=== PATIENT | female | born 1995 | race Caucasian/White ===

== ENCOUNTER 2019-05-21 07:30 | Emergency (ER) | payer OTHER ==
[2019-05-21] MEDS ORDERED: NA CHLORIDE 0.9% 1,000 ML ONE (08:18)
[2019-05-21 08:24] LABS: Protime INR 1.27
[2019-05-21 08:32] LABS: Absolute Lymphocytes (CBC) 1.2 K/uL (0.7-4.9); Basophils % 0.4 % (0-1.3); Hematocrit 36.5 % (36.0-45.0); Lymphocytes % 34.1 % (15.3-44.8); RBC Red Blood Cell Count 4.67 M/uL (3.86-4.86)
--- NOTE | 2019-05-21 08:45 | RAD REPORT ---
EXAM DESCRIPTION: Miesha Single View05/21/2019 8:23 am CLINICAL HISTORY: Chest pain COMPARISON: none FINDINGS: The lungs appear clear of acute infiltrate. The heart is mildly enlarged Postsurgical changes involve the chest and spine IMPRESSION: No acute abnormalities displayed
[2019-05-21 08:55] LABS: ALT/SGPT 15 U/L (12-78); AST/SGOT 23 U/L (15-37); Albumin 3.3 g/dL (3.4-5.0); Alkaline Phosphatase 86 U/L (45-117); BUN Blood Urea Nitrogen 10 mg/dL (7-18); Bicarbonate 23 mmol/L (21-32); Bilirubin Direct 0.2 mg/dL (0-0.2); Bilirubin Total 0.7 mg/dL (0.2-1.0); Glucose Level 95 mg/dL (74-106); Lipase 67 U/L (73-393); Magnesium 2.4 mg/dL (1.8-2.4); NT PRO-BNP 279 pg/mL (<125); Potassium 3.5 mmol/L (3.5-5.1); Protein, Total 8.1 g/dL (6.4-8.2); Sodium Level 139 mmol/L (136-145); Troponin (Emerg Dept Use Only) < 0.02 ng/mL (0.0-0.045)
--- NOTE | 2019-05-21 09:29 | ER ---
Nurse's Notes [facility] Name: Genoveva Harrison Age: 23 yrs Sex: Female : 1995 Arrival Date: 05/21/2019 Time: 07:32 Bed 4 Private MD: Diagnosis: Chest pain, unspecified-truncus arteriosis hx;Dyspnea;Unspecified combined systolic (congestive) and diastolic (congestive) heart failure;Cardiomegaly Presentation: 05/20 07:44 Chief complaint: Patient states: hx of artificial valve and is due for a replacement , iw has hx of PVC and PAC, took magnesium last night because she was having chest pain and sharp stabbing pains when she took a deep breath, pain was worse this morning. Coronavirus screen: The patient has NOT traveled to a country currently being monitored by the [facility] within the last 14 days. Proceed with normal triage procedures. The patient has NOT had contact with any known and/or suspected case of coronavirus. Proceed with normal triage procedures. Ebola Screen: Patient negative for fever greater than or equal to 101.5 degrees Fahrenheit, and additional compatible Ebola Virus Disease symptoms Patient denies exposure to infectious person. Patient denies travel to an Ebola-affected area in the 21 days before illness onset. No symptoms or risks identified at this time. Initial Sepsis Screen: Does the patient meet any 2 criteria? No. Patient's initial sepsis screen is negative. Does the patient have a suspected source of infection? No. Patient's initial sepsis screen is negative. Risk Assessment: Do you want to hurt yourself or someone else? Patient reports no desire to harm self or others. 07:44 Method Of Arrival: Ambulatory iw 07:44 Acuity: FERNANDA 2 iw 08:22 Onset of symptoms was May 21, 2019. 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 - Social history:: Smoking status: Patient denies any tobacco usage or history of. - Family history:: not pertinent. Screenin:22 Abuse screen: Denies threats or abuse. Nutritional screening: No deficits noted. tw2 Tuberculosis screening: No symptoms or risk factors identified. Fall Risk None identified. Assessment: 08:05 General: Appears in no apparent distress. slender, well groomed, Behavior is calm, tw2 cooperative, appropriate for age. Pain: Complains of pain in chest Pain does not radiate. Pain began suddenly, Aggravated by deep breathing. Neuro: Level of Consciousness is awake, alert, obeys commands, Oriented to person, place, time, situation. Cardiovascular: Heart tones S1 S2 Patient's skin is warm and dry. Respiratory: Airway is patent Respiratory effort is even, unlabored, Respiratory pattern is regular, symmetrical, Breath sounds are clear bilaterally. GI: No signs and/or symptoms were reported involving the gastrointestinal system. Abdomen is flat, Bowel sounds present X 4 quads. : No signs and/or symptoms were reported regarding the genitourinary system. EENT: No signs and/or symptoms were reported regarding the EENT system. Derm: No signs and/or symptoms reported regarding the dermatologic system. Musculoskeletal: Circulation, motion, and sensation intact. Range of motion: intact in all extremities. 08:35 Reassessment: Patient appears in no apparent distress at this time. Patient and/or tw2 family updated on plan of care and expected duration. Pain level reassessed. Patient is alert, oriented x 3, equal unlabored respirations, skin warm/dry/pink. 09:23 Reassessment: Patient appears in no apparent distress at this time. No changes from tw2 previously documented assessment. Patient and/or family updated on plan of care and expected duration. Pain level reassessed. Patient is alert, oriented x 3, equal unlabored respirations, skin warm/dry/pink. 10:20 Reassessment: Patient appears in no apparent distress at this time. No changes from tw2 previously documented assessment. Patient and/or family updated on plan of care and expected duration. Pain level reassessed. Patient is alert, oriented x 3, equal unlabored respirations, skin warm/dry/pink. 11:25 Reassessment: pt in CT at this time. tw2 12:17 Reassessment: Patient appears in no apparent distress at this time. No changes from tw2 previously documented assessment. Patient and/or family updated on plan of care and expected duration. Pain level reassessed. Patient is alert, oriented x 3, equal unlabored respirations, skin warm/dry/pink. 12:55 Reassessment: Patient appears in no apparent distress at this time. No changes from tw2 previously documented assessment. Patient and/or family updated on plan of care and expected duration. Pain level reassessed. Patient is alert, oriented x 3, equal unlabored respirations, skin warm/dry/pink. Vital Signs: 07:44 BP 135 / 80; Pulse 99; Resp 18 S; Temp 98.9; Pulse Ox 99% on R/A; Weight 74.84 kg; iw Height 5 ft. 2 in. (157.48 cm); Pain 10/10; 08:00 BP 113 / 81; Pulse 90; Resp 16; Temp 97.9(TE); Pulse Ox 98% on R/A; tw2 08:35 BP 109 / 45; Pulse 68; Resp 17; Pulse Ox 98% on R/A; tw2 09:22 BP 103 / 83; Pulse 92; Resp 17; Pulse Ox 99% on R/A; tw2 10:20 BP 109 / 75; Pulse 87; Resp 15; Pulse Ox 98% on R/A; tw2 11:20 BP 98 / 71; Pulse 64; Resp 17; Pulse Ox 100% on R/A; tw2 12:16 BP 100 / 57; Pulse 62; Resp 22; Pulse Ox 98% on R/A; tw2 12:55 BP 107 / 79; Pulse 66; Resp 17; Pulse Ox 99% on R/A; tw2 07:44 Body Mass Index 30.18 (74.84 kg, 157.48 cm) iw ED Course: 07:32 Patient arrived in ED. ag5 07:33 Jesse Hendrix MD is Attending Physician. chelle 07:47 Triage completed. iw 07:47 Arm band placed on. iw 07:49 Micaela Hairston RN is Primary Nurse. tw2 07:50 Placed in gown. Bed in low position. Adult w/ patient. laboratory monitor on. Pulse ox on. tw2 NIBP on. Pillow given. 08:05 Inserted saline lock: 22 gauge in right antecubital area, using aseptic technique. tw2 Blood collected. Patient maintains SpO2 saturation greater than 95% on room air. 08:39 EKG done, by factory maintenance technician. reviewed by Jesse Hendrix MD. at1 09:00 pt requested ice chips, provider approved, pt given ice chips at this time. tw2 09:11 ED physician to see patient. jl7 09:[address] Jennifer Emery office called at [phone]/ the office says he is eb unavailable currently but send a page out for him to call us. 10:[address] Alfredo the reel cutter restoration officer for Dr. Jennifer Emery with Dr. Hendrix for eb patient consultation. 11:15 Urine collected: clean catch specimen, cloudy, adrienne colored. jb1 12:43 IV discontinued, intact, bleeding controlled, No redness/swelling at site. Pressure tw2 dressing applied. 12:56 No provider procedures requiring assistance completed. tw2 Administered Medications: 08:15 Drug: NS 0.9% 1000 ml Route: IV; Rate: 125 ml/hr; Site: right antecubital; tw2 12:29 Follow up: IV Status: Order to discontinue infusion tw2 10:44 Drug: Aspirin 81 mg Route: PO; tw2 12:55 Follow up: Response: No adverse reaction tw2 10:44 Drug: Lopressor (metoprolol TARTRATE) 50 mg Route: PO; tw2 12:55 Follow up: Response: No adverse reaction tw2 12:47 Not Given (Duplicate Order): Lasix 20 mg IVP once tw2 12:48 Drug: LaSIX 20 mg Route: PO; tw2 12:55 Follow up: Response: No adverse reaction tw2 Outcome: 09:27 ER care complete, transfer ordered by . chelle 12:29 Discharge ordered by . chelle 12:43 Discharged to home ambulatory, with family. tw2 12:43 Condition: stable 12:43 Discharge instructions given to patient, family, Instructed on discharge instructions, follow up and referral plans. no drinking with medication, no driving heavy equipment, medication usage, Demonstrated understanding of instructions, follow-up care, medications, Prescriptions given X 3. 12:56 Patient left the ED. tw2 Signatures: Jack Barnett jb1 Jesse Hendrix MD MD cha Williams, Irene, RN RN iw Adela Wagner, director of blood EKG Tat1 Micaela Hairston RN RN tw2 Yumiko Barry RN RN jl7 Svtea Orourke, Crystal ag5 Corrections: (The following items were deleted from the chart) 09:34 08:00 BP 113 / 81; Pulse 90bpm; Resp 16bpm; Pulse Ox 98% RA; tw2 tw2
--- NOTE | 2019-05-21 09:29 | EDPHYS ---
Physician Documentation [facility] Name: Genoveva Harrison Age: 23 yrs Sex: Female : 1995 Arrival Date: 05/21/2019 Time: 07:32 Bed 4 Private MD: ED Physician Jesse Hendrix HPI: 05/20 09:13 This 23 yrs old Female presents to ER via Ambulatory with complaints of Chest chelle Pain. 09:13 The patient or guardian reports chest pain that is located primarily in the anterior chelle chest wall, bilaterally. The pain does not radiate. Associated signs and symptoms: The patient has no apparent associated signs or symptoms. The chest pain is described as aching. Duration: The patient or guardian reports multiple episodes, that are intermittent. Modifying factors: The symptoms are alleviated by nothing. the symptoms are aggravated by nothing. Severity of pain: At its worst the pain was mild in the emergency department the pain is unchanged. 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 - Social history:: Smoking status: Patient denies any tobacco usage or history of. - Family history:: not pertinent. ROS: 09:13 Constitutional: Negative for fever, chills, and weight loss, Eyes: Negative for injury, chelle pain, redness, and discharge, ENT: Negative for injury, pain, and discharge, Neck: Negative for injury, pain, and swelling. 09:13 Abdomen/GI: Negative for abdominal pain, nausea, vomiting, diarrhea, and constipation, Back: Negative for injury and pain, : Negative for injury, bleeding, discharge, and swelling, MS/Extremity: Negative for injury and deformity, Skin: Negative for injury, rash, and discoloration, Neuro: Negative for headache, weakness, numbness, tingling, and seizure. 09:13 Cardiovascular: Positive for chest pain. 09:13 Respiratory: Positive for shortness of breath. Exam: 09:20 Constitutional: This is a well developed, well nourished patient who is awake, alert, chelle and in no acute distress. Head/Face: Normocephalic, atraumatic. Eyes: Pupils equal round and reactive to light, extra-ocular motions intact. Lids and lashes normal. Conjunctiva and sclera are non-icteric and not injected. Cornea within normal limits. Periorbital areas with no swelling, redness, or edema. ENT: Nares patent. No nasal discharge, no septal abnormalities noted. Tympanic membranes are normal and external auditory canals are clear. Oropharynx with no redness, swelling, or masses, exudates, or evidence of obstruction, uvula midline. Mucous membranes moist. Neck: Trachea midline, no thyromegaly or masses palpated, and no cervical lymphadenopathy. Supple, full range of motion without nuchal rigidity, or vertebral point tenderness. No Meningismus. Chest/axilla: Normal chest wall appearance and motion. Nontender with no deformity. No lesions are appreciated. Respiratory: Lungs have equal breath sounds bilaterally, clear to auscultation and percussion. No rales, rhonchi or wheezes noted. No increased work of breathing, no retractions or nasal flaring. Abdomen/GI: Soft, non-tender, with normal bowel sounds. No distension or tympany. No guarding or rebound. No evidence of tenderness throughout. Back: No spinal tenderness. No costovertebral tenderness. Full range of motion. Skin: Warm, dry with normal turgor. Normal color with no rashes, no lesions, and no evidence of cellulitis. MS/ Extremity: Pulses equal, no cyanosis. Neurovascular intact. Full, normal range of motion. Neuro: Awake and alert, GCS 15, oriented to person, place, time, and situation. Cranial nerves II-XII grossly intact. Motor strength 5/5 in all extremities. Sensory grossly intact. Cerebellar exam normal. Normal gait. 09:20 Cardiovascular: Rate: normal, Rhythm: regular, Pulses: Heart sounds: murmur, crescendo, grade 4 over 6, rub, not appreciated, gallop, not appreciated, Edema: is not appreciated, JVD: is not appreciated. Vital Signs: 07:44 BP 135 / 80; Pulse 99; Resp 18 S; Temp 98.9; Pulse Ox 99% on R/A; Weight 74.84 kg; iw Height 5 ft. 2 in. (157.48 cm); Pain 10/10; 08:00 BP 113 / 81; Pulse 90; Resp 16; Temp 97.9(TE); Pulse Ox 98% on R/A; tw2 08:35 BP 109 / 45; Pulse 68; Resp 17; Pulse Ox 98% on R/A; tw2 09:22 BP 103 / 83; Pulse 92; Resp 17; Pulse Ox 99% on R/A; tw2 10:20 BP 109 / 75; Pulse 87; Resp 15; Pulse Ox 98% on R/A; tw2 11:20 BP 98 / 71; Pulse 64; Resp 17; Pulse Ox 100% on R/A; tw2 12:16 BP 100 / 57; Pulse 62; Resp 22; Pulse Ox 98% on R/A; tw2 12:55 BP 107 / 79; Pulse 66; Resp 17; Pulse Ox 99% on R/A; tw2 07:44 Body Mass Index 30.18 (74.84 kg, 157.48 cm) iw MDM: 07:49 Patient medically screened. [facility] 09:22 Data reviewed: vital signs, nurses notes, lab test result(s), EKG, radiologic studies, chelle plain films. 05/20 07:55 Order name: Basic Metabolic Panel [facility] 05/20 07:55 Order name: CBC with Diff [facility] 05/20 07:55 Order name: LFT's [facility] 05/20 07:55 Order name: Magnesium [facility] 05/20 07:55 Order name: NT PRO-BNP [facility] 05/20 07:55 Order name: PT-INR [facility] 05/20 07:55 Order name: Troponin (emerg Dept Use Only) [facility] 05/20 07:55 Order name: Lipase [facility] 05/20 08:29 Order name: Protime (+INR); Complete Time: 09:13 EDMS 05/20 08:38 Order name: CBC with Automated Diff; Complete Time: 09:13 EDMS 05/20 08:55 Order name: Basic Metabolic Panel; Complete Time: 09:13 EDMS 05/20 08:55 Order name: Liver (Hepatic) Function; Complete Time: 09:13 EDMS 05/20 08:55 Order name: Troponin (Emerg Dept Use Only); Complete Time: 09:13 EDMS 05/20 08:55 Order name: NT PRO-BNP; Complete Time: 09:13 EDMS 05/20 07:55 Order name: XRAY Chest (1 view) [facility] 05/20 08:51 Order name: RAD; Complete Time: 09:13 EDMS 05/20 08:55 Order name: Magnesium; Complete Time: 09:13 EDMS 05/20 08:55 Order name: Lipase; Complete Time: 09:13 EDMS 05/20 10:37 Order name: CT Chest For PE Angio [facility] 05/20 11:17 Order name: Urine Dipstick--Ancillary (enter results) eb 05/20 11:17 Order name: Urine --Ancillary (enter results) 05/20 11:37 Order name: CT; Complete Time: 11:58 EDMS 05/20 12:08 Order name: Urine --Ancillary; Complete Time: 12:26 EDIA 05/20 12:08 Order name: Urine Dipstick-Ancillary; Complete Time: 12:26 EDIA 05/20 07:55 Order name: EKG; Complete Time: 07:58 [facility] 05/20 07:55 Order name: Cardiac monitoring; Complete Time: 07:57 [facility] 05/20 07:55 Order name: EKG - Nurse/Tech; Complete Time: 08:15 [facility] 05/20 07:55 Order name: IV Saline Lock; Complete Time: 07:57 [facility] 05/20 07:55 Order name: Labs collected and sent; Complete Time: 08:15 [facility] 05/20 07:55 Order name: O2 Per Protocol; Complete Time: 07:58 [facility] 05/20 07:55 Order name: O2 Sat Monitoring; Complete Time: 07:58 [facility] 05/20 07:55 Order name: Urine Dipstick-Ancillary (obtain specimen); Complete Time: 11:16 chelle 05/20 07:55 Order name: Urine Test (obtain specimen); Complete Time: 11:15 chelle Administered Medications: 08:15 Drug: NS 0.9% 1000 ml Route: IV; Rate: 125 ml/hr; Site: right antecubital; tw2 12:29 Follow up: IV Status: Order to discontinue infusion tw2 10:44 Drug: Aspirin 81 mg Route: PO; tw2 12:55 Follow up: Response: No adverse reaction tw2 10:44 Drug: Lopressor (metoprolol TARTRATE) 50 mg Route: PO; tw2 12:55 Follow up: Response: No adverse reaction tw2 12:47 Not Given (Duplicate Order): Lasix 20 mg IVP once tw2 12:48 Drug: LaSIX 20 mg Route: PO; tw2 12:55 Follow up: Response: No adverse reaction tw2 Disposition: 05/21/19 12:29 Discharged to Home. Impression: Chest pain, unspecified - truncus arteriosis hx, Dyspnea, Unspecified combined systolic (congestive) and diastolic (congestive) heart failure, Cardiomegaly. - Condition is Stable. - Discharge Instructions: Nonspecific Chest Pain, Heart Failure, Shortness of Breath, [id number], Nonspecific Chest Pain, Zeji-cb-Pget, Aspirin and Your Heart. - Prescriptions for Toprol XL 50 mg Oral Tablet - take 1 tablet by ORAL route once daily; 20 tablet. Pepcid 20 mg Oral Tablet - take 1 tablet by ORAL route every 12 hours for 10 days; 20 tablet. Lasix 20 mg Oral Tablet - take 1 tablet by ORAL route once daily; 10 tablet. - Medication Reconciliation Form, Thank You Letter, Antibiotic Education, Prescription Opioid Use form. - Follow up: Private Physician; When: 2 - 3 days; Reason: Recheck today's complaints, Continuance of care, Re-evaluation by your physician. - Problem is new. - Symptoms have improved. Signatures: Dispatcher [employer] [facility] Jesse Hendrix MD MD cha Williams, Irene RN RN Micaela Hairston RN RN tw2 Corrections: (The following items were deleted from the chart) 10:37 09:27 05/21/2019 09:27 Transfer ordered to [facility]. Diagnosis is Other chest chelle pain; Dyspnea. Reason for transfer: Higher level of care. Accepting physician is Dr. Jordan. Condition is Fair. Problem is new. Symptoms have improved. [facility] 12:56 12:29 05/21/2019 12:29 Discharged to Home. Impression: Chest pain, unspecified - tw2 truncus arteriosis hx; Dyspnea; Unspecified combined systolic (congestive) and diastolic (congestive) heart failure; Cardiomegaly. Condition is Stable. Discharge Instructions: Nonspecific Chest Pain, Shortness of Breath, [id number], Nonspecific Chest Pain, [id number], Aspirin and Your Heart. Prescriptions for Toprol XL 50 mg Oral Tablet - take 1 tablet by ORAL route once daily; 20 tablet, Pepcid 20 mg Oral Tablet - take 1 tablet by ORAL route every 12 hours for 10 days; 20 tablet. and Forms are Medication Reconciliation Form, Thank You Letter, Antibiotic Education, Prescription Opioid Use. Follow up: Private Physician; When: 2 - 3 days; Reason: Recheck today's complaints, Continuance of care, Re-evaluation by your physician. Problem is new. Symptoms have improved. chelle
[2019-05-21] MEDS ORDERED: METOPROLOL TAR 50 MG TAB ONE (10:40)
[2019-05-21] MEDS ORDERED: ASPIRIN EC 81 MG TAB PO ONE (10:41)
--- NOTE | 2019-05-21 11:36 | RAD REPORT ---
EXAM DESCRIPTION: CT - Chest For Pe Angio - 05/21/2019 11:27 am CLINICAL HISTORY: Chest pain. Chest pain;Dyspnea COMPARISON: No comparisons TECHNIQUE: CT angiogram of the pulmonary arteries was performed with MIP. All CT scans are performed using dose optimization technique as appropriate and may include automated exposure control or mA/KV adjustment according to patient size. FINDINGS: No evidence of pulmonary thromboembolism. Stent material is present in the pulmonary arter y. Artificial pulmonary bowel also suspected. No acute aortic finding demonstrated. Cardiomegaly is present. Mild interstitial pulmonary edema seen. No significant pericardial or pleural fluid. Extensive hardware is present with scoliosis in the thoracic spine. IMPRESSION: No evidence of pulmonary thromboembolism. Mild interstitial pulmonary edema.
[2019-05-21 12:07] LABS: Urine Blood NEGATIVE (NEG); Urine Glucose NEGATIVE (NEG); Urine Protein 1+ (NEG); Urine pH 5.5 (5.0-7.0)
[2019-05-21] MEDS ORDERED: FUROSEMIDE 20 MG TABLET ONE (12:55)
[2019-05-21 13:16] VITALS: TEMP 97.9
[2019-05-21 13:25] VITALS: BP 107/79; O2SAT 99
--- NOTE | 2019-05-21 13:44 | EKG ---
Test Date: 2019-05-21 Test Time: 08:02:18 Customer Support Analyst: RICHARD MEASUREMENT RESULTS: Intervals: Rate: 91 WI: 152 QRSD: 144 QT: 424 QTc: 521 [place]: P: 38 WI: 152 QRS: 64 T: 80 INTERPRETIVE STATEMENTS: Normal sinus rhythm Right bundle branch block Abnormal ECG No previous ECG available for comparison Electronically Signed On 05-21-19 13:43:40 [employer]IL[employer] ACT[employer] by [employer]
== END 2019-05-21 12:56 | disposition home or self-care (01) ==
LOC: ER 07:30
DX: Q20.0 Common arterial trunk (principal); I50.40 Unspecified combined systolic (congestive) and diastolic (congestive) heart failure; I51.7 Cardiomegaly; R06.00 Dyspnea, unspecified; Z88.6 Allergy status to analgesic agent
CPT/HCPCS: 96361; 93005; 85025; 80048; 36415; 83735; 81025; 85610; 80076; 81003; 84484; 83690; 83880; 71275; 71045; 96360; 99285; Q9967; J7030

== ENCOUNTER 2019-05-25 14:06 | Emergency (ER) | payer OTHER ==
--- NOTE | 2019-05-25 15:07 | RAD REPORT ---
EXAM DESCRIPTION: RAD - Chest Single View - 05/25/2019 2:58 pm CLINICAL HISTORY: CHEST PAIN Chest pain. COMPARISON: Chest Single View dated 05/21/2019 FINDINGS: Portable technique limits examination quality. The lungs are grossly clear. The heart is mildly enlarged in size. Stent is present in the aortic arc h region. Extensive hardware is present in the spine. Sternotomy wires present IMPRESSION: No acute intrathoracic process suspected.
[2019-05-25 15:25] LABS: Absolute Lymphocytes (CBC) 1.2 K/uL (0.7-4.9); Basophils % 0.5 % (0-1.3); Hematocrit 34.7 % (36.0-45.0); Lymphocytes % 28.7 % (15.3-44.8); MPV 10.5 fL (7.6-11.3); Protime INR 1.3; RBC Red Blood Cell Count 4.54 M/uL (3.86-4.86)
--- NOTE | 2019-05-25 15:26 | EDPHYS ---
Physician Documentation [facility] Name: Genoveva Harrison Age: 23 yrs Sex: Female : 1995 Arrival Date: 05/25/2019 Time: 14:08 Bed 6 Private MD: YANNA Physician Jesse Hendrix HPI: 05/24 15:10 This 23 yrs old Female presents to ER via Ambulatory with complaints of Chest chelle Pain, Shortness Of Breath. 15:10 The patient or guardian reports chest pain that is located primarily in the anterior chelle chest wall, left. The pain does not radiate. Associated signs and symptoms: The patient has no apparent associated signs or symptoms. The chest pain is described as stabbing. Duration: The patient or guardian reports multiple episodes, with no pattern. Modifying factors: The symptoms are alleviated by nothing. the symptoms are aggravated by nothing. Severity of pain: At its worst the pain was mild in the emergency department the pain is unchanged. The patient has not experienced similar symptoms in the past. Historical: - Allergies: 15:03 Morphine; sv - Home Meds: 15:03 aspirin 81 mg Oral TbEC 1 tab once daily [Active]; iron Oral every other day, due for sv refill [Active]; metoprolol succinate 50 mg Oral Tb24 1 tab twice a day [Active]; - PMHx: 15:03 scoliosis; truncus arteriosis; sv - PSHx: 15:03 Heart stents; artificial valve; back; right leg and ankle; open heart surgery X 3; sv - Immunization history:: Adult Immunizations up to date. - Family history:: not pertinent. - Social history:: Smoking status: Patient denies any tobacco usage or history of. ROS: 15:10 Constitutional: Negative for fever, chills, and weight loss, Eyes: Negative for injury, chelle pain, redness, and discharge, ENT: Negative for injury, pain, and discharge, Neck: Negative for injury, pain, and swelling, Respiratory: Negative for shortness of breath, cough, wheezing, and pleuritic chest pain, Abdomen/GI: Negative for abdominal pain, nausea, vomiting, diarrhea, and constipation, Back: Negative for injury and pain, : Negative for injury, bleeding, discharge, and swelling, MS/Extremity: Negative for injury and deformity, Skin: Negative for injury, rash, and discoloration, Neuro: Negative for headache, weakness, numbness, tingling, and seizure, Psych: Negative for depression, anxiety, suicide ideation, homicidal ideation, and hallucinations, Allergy/Immunology: Negative for hives, rash, and allergies, Endocrine: Negative for neck swelling, polydipsia, polyuria, polyphagia, and marked weight changes, Hematologic/Lymphatic: Negative for swollen nodes, abnormal bleeding, and unusual bruising. 15:10 Cardiovascular: Positive for chest pain, of the chest. Exam: 15:10 Constitutional: This is a well developed, well nourished patient who is awake, alert, chelle and in no acute distress. Head/Face: Normocephalic, atraumatic. Eyes: Pupils equal round and reactive to light, extra-ocular motions intact. Lids and lashes normal. Conjunctiva and sclera are non-icteric and not injected. Cornea within normal limits. Periorbital areas with no swelling, redness, or edema. ENT: Nares patent. No nasal discharge, no septal abnormalities noted. Tympanic membranes are normal and external auditory canals are clear. Oropharynx with no redness, swelling, or masses, exudates, or evidence of obstruction, uvula midline. Mucous membranes moist. Neck: Trachea midline, no thyromegaly or masses palpated, and no cervical lymphadenopathy. Supple, full range of motion without nuchal rigidity, or vertebral point tenderness. No Meningismus. Chest/axilla: Normal chest wall appearance and motion. Nontender with no deformity. No lesions are appreciated. Respiratory: Lungs have equal breath sounds bilaterally, clear to auscultation and percussion. No rales, rhonchi or wheezes noted. No increased work of breathing, no retractions or nasal flaring. Abdomen/GI: Soft, non-tender, with normal bowel sounds. No distension or tympany. No guarding or rebound. No evidence of tenderness throughout. Back: No spinal tenderness. No costovertebral tenderness. Full range of motion. Female : Normal external genitalia. Skin: Warm, dry with normal turgor. Normal color with no rashes, no lesions, and no evidence of cellulitis. MS/ Extremity: Pulses equal, no cyanosis. Neurovascular intact. Full, normal range of motion. Neuro: Awake and alert, GCS 15, oriented to person, place, time, and situation. Cranial nerves II-XII grossly intact. Motor strength 5/5 in all extremities. Sensory grossly intact. Cerebellar exam normal. Normal gait. Psych: Awake, alert, with orientation to person, place and time. Behavior, mood, and affect are within normal limits. 15:10 Cardiovascular: Rate: normal, Rhythm: regular, Pulses: Pulses are 4+ in left popliteal artery, bilateral radial, brachial, femoral, popliteal, posterior tibial and and dorsalis pedis arteries.. Heart sounds: murmur, grade 3 over 6. Vital Signs: 14:15 BP 119 / 69; Pulse 93; Resp 18; Temp 99.4(O); Pulse Ox 97% on R/A; Weight 72.57 kg; dm5 Height 5 ft. 4 in. (162.56 cm); Pain 9/10; 15:20 BP 116 / 66; Pulse 94 MON; Resp 20; Pulse Ox 98% on R/A; sv 16:34 BP 112 / 72; Pulse 83; Resp 19; Pulse Ox 98% ; sv 17:30 BP 115 / 71; Pulse 87; Resp 22; Pulse Ox 98% on R/A; sv 14:15 Body Mass Index 27.46 (72.57 kg, 162.56 cm) dm5 15:20 Sinus Rhythm sv MDM: 14:19 Patient medically screened. [facility] 15:12 Data reviewed: vital signs, nurses notes, lab test result(s), EKG, radiologic studies, chelle plain films. 05/24 14:22 Order name: Basic Metabolic Panel [facility] 05/24 14:22 Order name: CBC with Diff [facility] 05/24 14:22 Order name: LFT's [facility] 05/24 14:22 Order name: Magnesium [facility] 05/24 14:22 Order name: NT PRO-BNP [facility] 05/24 14:22 Order name: PT-INR [facility] 05/24 14:22 Order name: Troponin (emerg Dept Use Only) [facility] 05/24 14:22 Order name: XRAY Chest (1 view) [facility] 05/24 14:22 Order name: Blood Culture Adult (2) [facility] 05/24 14:22 Order name: Urine Culture [facility] 05/24 14:45 Order name: Urine Dipstick--Ancillary (enter results) 05/24 14:45 Order name: Urine --Ancillary (enter results) 05/24 14:22 Order name: EKG; Complete Time: 14:25 [facility] 05/24 14:22 Order name: Cardiac monitoring; Complete Time: 14:37 [facility] 05/24 14:22 Order name: EKG - Nurse/Tech; Complete Time: 14:28 [facility] 05/24 14:22 Order name: IV Saline Lock; Complete Time: 15:12 [facility] 05/24 14:22 Order name: Labs collected and sent; Complete Time: 15:12 [facility] 05/24 14:22 Order name: O2 Per Protocol; Complete Time: 14:37 [facility] 05/24 14:22 Order name: O2 Sat Monitoring; Complete Time: 14:37 [facility] 05/24 14:22 Order name: Urine Dipstick-Ancillary (obtain specimen); Complete Time: 14:37 [facility] 05/24 14:22 Order name: Urine Test (obtain specimen); Complete Time: 14:37 [facility] Administered Medications: 14:29 CANCELLED (Duplicate Order): NS 0.9% 1000 ml IV at 1 bolus Per protocol; 1000 mL bolus [facility] Disposition: 05/25/19 15:23 Transfer ordered to [facility]. Diagnosis are Chest pain, unspecified - hx of truncus arteriosis, Dyspnea. - Reason for transfer: Higher level of care. - Accepting physician is to [facility]. - Condition is Fair. - Problem is new. - Symptoms have improved. Signatures: Dispatcher [employer] Deidra Clifton, KHAI RN Jesse Olmedo MD MD cha Corrections: (The following items were deleted from the chart) 14: 14:22 NS 0.9% 1000 ml IV at 1 bolus Per protocol; 1000 mL bolus ordered. [facility] 14:29 14:25 EC Echo Doppler W/Color Flow+ECHO.RAD.BRZ ordered. [facility] 17:36 15:23 05/25/2019 15:23 Transfer ordered to [facility]. Diagnosis is Chest pain, sv unspecified - hx of truncus arteriosis; Dyspnea. Reason for transfer: Higher level of care. Accepting physician is to [facility]. Condition is Fair. Problem is new. Symptoms have improved. chelle
--- NOTE | 2019-05-25 15:26 | ER ---
Nurse's Notes [facility] Name: Genoveva Harrison Age: 23 yrs Sex: Female : 1995 Arrival Date: 05/25/2019 Time: 14:08 Bed 6 Private MD: Diagnosis: Chest pain, unspecified-hx of truncus arteriosis;Dyspnea Presentation: 05/24 14:15 Chief complaint: Patient states: seen here last Friday with chest pain, discharged to [facility] follow up with packaging designer. Molder Operator did say pt had some fluid around the heart and that if it keeps building up it will go to my lungs. Pt called packaging designer today and was advised to come back to the ED to possibly be transferred to [facility]. Coronavirus screen: The patient has NOT traveled to a country currently being monitored by the CDC within the last 14 days. The patient has NOT had contact with any known and/or suspected case of coronavirus. Ebola Screen: Patient negative for fever greater than or equal to 101.5 degrees Fahrenheit, and additional compatible Ebola Virus Disease symptoms Patient denies exposure to infectious person. Patient denies travel to an Ebola-affected area in the 21 days before illness onset. No symptoms or risks identified at this time. Initial Sepsis Screen: Does the patient meet any 2 criteria? No. Patient's initial sepsis screen is negative. Does the patient have a suspected source of infection? No. Patient's initial sepsis screen is negative. Risk Assessment: Do you want to hurt yourself or someone else? Patient reports no desire to harm self or others. Note pt states she feels weak and tired. The there is a pressure on inspiration and stabbing pain on expiration. 14:15 Method Of Arrival: Ambulatory [facility] 14:15 Acuity: FERNANDA 3 5 14:30 Onset of symptoms was May 20, 2021. sv Historical: - Allergies: 15:03 Morphine; sv - Home Meds: 15:03 aspirin 81 mg Oral TbEC 1 tab once daily [Active]; iron Oral every other day, due for sv refill [Active]; metoprolol succinate 50 mg Oral Tb24 1 tab twice a day [Active]; - PMHx: 15:03 scoliosis; truncus arteriosis; sv - PSHx: 15:03 Heart stents; artificial valve; back; right leg and ankle; open heart surgery X 3; sv - Immunization history:: Adult Immunizations up to date. - Family history:: not pertinent. - Social history:: Smoking status: Patient denies any tobacco usage or history of. Screenin:40 Abuse screen: Denies threats or abuse. Denies injuries from another. Nutritional sv screening: No deficits noted. Tuberculosis screening: No symptoms or risk factors identified. Fall Risk None identified. Assessment: 14:40 General: Appears in no apparent distress. uncomfortable, well groomed, well developed, sv Behavior is calm, cooperative, appropriate for age. Pain: Complains of pain in chest Pain does not radiate. Pain currently is 9 out of 10 on a pain scale. Quality of pain is described as sharp, Pain began 2-3 days ago. Is intermittent, episodic, Aggravated by breathing Also complains of shortness of breath. Neuro: Level of Consciousness is awake, alert, obeys commands, Oriented to person, place, time, situation, Moves all extremities. Full function Gait is steady, Speech is normal. Cardiovascular: Heart tones S1 S2 present Murmur present Patient's skin is warm and dry. Pulses are palpable in right radial artery and left radial artery Rhythm is sinus rhythm. Respiratory: Reports shortness of breath on exertion Airway is patent Respiratory effort is even, unlabored, Respiratory pattern is regular, symmetrical, Breath sounds are clear bilaterally. Derm: Skin is intact, Skin is pink, warm \T\ dry. Musculoskeletal: Range of motion: intact in all extremities. 15:50 Reassessment: Patient appears in no apparent distress at this time. No changes from sv previously documented assessment. Patient and/or family updated on plan of care and expected duration. Pain level reassessed. Patient is alert, oriented x 3, equal unlabored respirations, skin warm/dry/pink. 16:53 Reassessment: Patient appears in no apparent distress at this time. No changes from sv previously documented assessment. Patient and/or family updated on plan of care and expected duration. Pain level reassessed. Patient is alert, oriented x 3, equal unlabored respirations, skin warm/dry/pink. 17:36 Reassessment: Patient appears in no apparent distress at this time. No changes from sv previously documented assessment. Patient and/or family updated on plan of care and expected duration. Pain level reassessed. Patient is alert, oriented x 3, equal unlabored respirations, skin warm/dry/pink. Report given to Roscoe from EMS. Vital Signs: 14:15 BP 119 / 69; Pulse 93; Resp 18; Temp 99.4(O); Pulse Ox 97% on R/A; Weight 72.57 kg; dm5 Height 5 ft. 4 in. (162.56 cm); Pain 9/10; 15:20 BP 116 / 66; Pulse 94 MON; Resp 20; Pulse Ox 98% on R/A; sv 16:34 BP 112 / 72; Pulse 83; Resp 19; Pulse Ox 98% ; sv 17:30 BP 115 / 71; Pulse 87; Resp 22; Pulse Ox 98% on R/A; sv 14:15 Body Mass Index 27.46 (72.57 kg, 162.56 cm) dm5 15:20 Sinus Rhythm sv ED Course: 14:08 Patient arrived in ED. ag5 14:18 Triage completed. dm5 14:19 Jesse Hendrix MD is Attending Physician. [facility] 14:33 Deidra Jaimes, KHAI is Primary Nurse. sv 14:37 Urine collected: clean catch specimen, cloudy, adrienne colored, EKG done, by transport technician. [email or web address] reviewed by Jesse Hendrix MD. 14:40 First set of blood cultures drawn by me. Inserted saline lock: 20 gauge in left sv antecubital area, using aseptic technique. Blood collected. Flushed left antecubital with 5 ml normal saline. 14:40 Arm band placed on. sv 14:40 Patient has correct armband on for positive identification. Placed in gown. Bed in low sv position. Call light in reach. patient monitor on. Pulse ox on. NIBP on. Door closed. Warm blanket given. Head of bed elevated. 14:55 Second set of blood cultures drawn by me. Patient maintains SpO2 saturation greater sv than 95% on room air. 15:02 XRAY Chest (1 view) In Process Unspecified. EDMS 15:44 attempted transfer to [facility]. bd 16:45 pt accepted at [facility], approval given by Sascha Greene. bd 16:54 transfer transportation to receiving facility. sv 16:54 No provider procedures requiring assistance completed. Patient transferred, IV remains sv in place. intact. 17:18 transfer transportation to receiving facility. sv Administered Medications: 14:29 CANCELLED (Duplicate Order): NS 0.9% 1000 ml IV at 1 bolus Per protocol; 1000 mL bolus chelle Outcome: 15:23 ER care complete, transfer ordered by . chelle 16:34 Transferred by ground EMS to [facility], Transfer form completed. X-rays sv sent w/ patient. Note: Report given to Sharif RN at [facility]. 16:34 Condition: stable 16:34 Instructed on the need for transfer. 17:36 Patient left the ED. sv Signatures: Dispatcher [employer] EDJack Conteh Barbara bd Markwardt, Deana, RN RN Deidra Rojas RN RN Jesse Olmedo MD MD cha Gaskin, Crystal ag5 Corrections: (The following items were deleted from the chart) 16:53 14:40 Cardiovascular: Heart tones S1 S2 present Patient's skin is warm and dry. Pulses sv are palpable in right radial artery and left radial artery Rhythm is sinus rhythm sv
--- NOTE | 2019-05-25 15:29 | EKG ---
Test Date: 2019-05-25 Test Time: 14:27:03 Public Health Dietitian: RICHARD MEASUREMENT RESULTS: Intervals: Rate: 93 NC: 142 QRSD: 144 QT: 408 QTc: 507 [place]: P: 37 NC: 142 QRS: 53 T: 75 INTERPRETIVE STATEMENTS: Normal sinus rhythm Right bundle branch block Abnormal ECG Compared to ECG 05/21/2019 08:02:18 No significant changes Electronically Signed On 05-25-19 15:28:36 CDT by Paulino Martinez
[2019-05-25 15:43] LABS: ALT/SGPT 21 U/L (12-78); AST/SGOT 26 U/L (15-37); Albumin 3.3 g/dL (3.4-5.0); Alkaline Phosphatase 79 U/L (45-117); BUN Blood Urea Nitrogen 11 mg/dL (7-18); Bicarbonate 24 mmol/L (21-32); Bilirubin Direct 0.2 mg/dL (0-0.2); Bilirubin Total 0.8 mg/dL (0.2-1.0); Glucose Level 86 mg/dL (74-106); Magnesium 2.1 mg/dL (1.8-2.4); NT PRO-BNP 820 pg/mL (<125); Sodium Level 137 mmol/L (136-145); Troponin (Emerg Dept Use Only) < 0.02 ng/mL (0.0-0.045)
[2019-05-25 17:49] VITALS: TEMP 99.4
[2019-05-25 17:50] VITALS: O2SAT 98
[2019-05-25 17:53] VITALS: BP 115/71
[2019-05-25 20:22] LABS: Urine Blood NEGATIVE (NEG); Urine Glucose NEGATIVE (NEG); Urine Protein 1+ (NEG); Urine Specific Gravity 1.025 (1.005-1.030); Urine pH 5.5 (5.0-7.0)
== END 2019-05-25 17:36 | disposition short-term general hospital (02) ==
LOC: ER 14:06
DX: R07.9 Chest pain, unspecified (principal); Q20.0 Common arterial trunk; R06.00 Dyspnea, unspecified; Z95.5 Presence of coronary angioplasty implant and graft
CPT/HCPCS: 36415; 71045; 80048; 80076; 81003; 81025; 83735; 83880; 84484; 85025; 85610; 87040; 87086; 87088; 93005; 99285

== ENCOUNTER 2021-07-12 21:34 | Emergency (ER) | payer OTHER ==
--- OUTSIDE RECORDS SUMMARY | 2021-07-12 21:36 | XMS REPORT | Continuity of Care Document ---
:1995 Author Organization [facility] t Address [address] [place] [address] Care Team Providers Name Role Phone AVRIL Attending Clinician Unavailable MD NAILA MACKENZIE Attending Clinician Unavailable KATARINA Attending Clinician Unavailable DAWSON Attending Clinician Unavailable ANA Attending Clinician Unavailable RAVIN Attending Clinician Unavailable TERESO Attending Clinician Unavailable Provider, Urgent Care Attending Clinician Unavailable Mil Milian MD Attending Clinician Mil MILIAN Attending Clinician Unavailable JOANN Attending Clinician Unavailable JULIANA Attending Clinician Unavailable SEBASTIAN Attending Clinician Unavailable MD LINNEA ANDREWS Attending Clinician Unavailable FORREST Attending Clinician Unavailable GINGER Attending Clinician Unavailable CRYSTAL Attending Clinician Unavailable MD Pearl ROJAS Attending Clinician Unavailable AVRIL Admitting Clinician Unavailable LALITA REESE Admitting Clinician Unavailable JULIANA Admitting Clinician Unavailable MD LINNEA ANDREWS Admitting Clinician Unavailable CRYSTAL Admitting Clinician Unavailable MD Pearl ROJAS Admitting Clinician Unavailable GINGER Admitting Clinician Unavailable Payers Payer Name Policy Type Policy Number Effective Date Expiration Date S ource Problems Condition Condition Condition Status Onset Resolution Last Treating Co mments Source Name Details Category Date Date Treatment Clinician Date No known No known Disease Unive rs active active ity of problems problems [facility] Allergies, Adverse Reactions, Alerts Allergy Allergy Status Severity Reaction(s) Onset Inactive Treating Comm ents Source Name Type Date Date Clinician MORPHINE DRUG Active Unknown-Cmnt Un shakeel INGREDI 11-25 ity of 00:00: [place] 00 Medical Branch Morphine Propensi Active Unknown - Has Uni vers ty to See comments 11-25 previousl i ty of adverse 00:00: y [place] reaction 00 tolerated Medic al s tylenol Branch #3 NO KNOWN Drug Active Univers ALLERGIE Class ity of S [facility] Social History Social Habit Start Date Stop Date Quantity Comments Source [facility] Exposure to Not sure [facility] SARS-CoV-2 (event) Medica l Branch Tobacco use and 2020-02-24 2020-02-24 [facility] used [facility] exposure 00:00:00 00:00:00 Medical Branch Smoking Status Start Date Stop Date Source Never smoker [facility] [place] Medications Ordered Filled Start Stop Current Ordering Indication Dosage Frequency Signature Comments Components Source Medication Medication Date Date Medication? Clinician (SIG) Name Name ferrous 2019-03 Yes 325mg Take 325 Unive rs sulfate 325 2-10 mg by ity of mg (65 mg 15:04: mouth. [place] iron) 52 Medical tablet Branch neomycin-po 2019-03 Yes [id number] 3[drp] Place 3 Univers lymyxin-hyd 2-10 12033 Drops in ity of rocortisone 00:00: right ear [place] 3.5-10,000- 00 4 (four) Medi virgen 1 times Branch mg/mL-unit/ daily. mL-% otic susp amoxicillin 2019-03 2020- No [id number] 1{tbl} Take 1 Univers -clavulanat 2-10 12-21 tablet by it y of e 00:00: 05:59 mouth 2 [place] (AUGMENTIN) 00 :00 (two) Medical 875-125 mg times Branch per tablet daily for 10 days. aspirin 81 2019-03 No 81mg Take 81 mg Univers mg EC 003 by mouth. ity of tablet 00:00: 04:59 [place] 00 :00 Medical Branch medroxyPROG Yes 150mg 150 mg by [facility] ESTERone 811 Intramuscu ity o f 150 mg/mL 00:00[place] 00 [facility] Vital Signs Vital Name Observation Time Observation Value Comments Source Systolic blood 2020-02-24 15:01:00 114 mm[Hg] Univer sity of pressure [facility] Diastolic blood 2020-02-24 15:01:00 78 mm[Hg] Unive rsity of pressure [facility] Heart rate 2020-02-24 15:01:00 80 /min Universi ty [facility] [facility] Body temperature 2020-02-24 15:01:00 37.06 Ivelisse Univ ersity [facility] [place] [facility] Respiratory rate 2020-02-24 15:01:00 18 /min [facility] Body height 2020-02-24 15:01:00 157.5 cm [facility] Body weight 2020-02-24 15:01:00 74.844 kg [facility] BMI 2020-02-24 15:01:00 30.18 kg/m2 [facility] Oxygen saturation in 2020-02-24 15:01:00 98 /min [facility] blood by [facility] Pulse oximetry Branch Procedures This patient has no known procedures. Encounters Start End Encounter Admission Attending Care Care Encounter Source Date/Time Date/Time Type Type Clinicians Facility Department ID 2020-11-30 2020-11-30 Outpatient MACKENZIE, [facility] [id number] [place] 00:00:00 00:00:00 YARITZA 484 Method i 2020-11-15 2020-11-15 Outpatient MACKENZIE, [facility] [id number] [place] 00:00:00 00:00:00 YARITZA 415 Method i 2020-08-31 2020-08-31 Outpatient MACKENZIE, [facility] [id number] [place] 00:00:00 00:00:00 YARITZA 888 Method i 2020-08-31 2020-08-31 Outpatient MACKENZIE, [facility] [id number] [place] 00:00:00 00:00:00 YARITZA 992 Method i 2020-08-16 2020-08-19 Inpatient MACKENZIE, [facility] [id number] [place] 00:00:00 00:00:00 YARITZA 548 Method i 2020-08-11 2020-08-11 Outpatient MACKENZIE, [facility] [id number] [place] 00:00:00 00:00:00 YARITZA 998 Method i 2020-08-11 2020-08-11 Outpatient KATARINA, [facility] [id number] [place] 00:00:00 00:00:00 ACE 296 Method i 2020-08-02 2020-08-02 Outpatient OSMAN, [facility] [id number] [place] 00:00:00 00:00:00 SHADE 486 Method i 2020-08-02 2020-08-02 Outpatient OSMAN, [facility] [id number] [place] 00:00:00 00:00:00 SHADE 787 Method i 2020-08-02 2020-08-02 Outpatient OSMAN, [facility] [id number] [place] 00:00:00 00:00:00 SHADE 305 Method i 2020-08-01 2020-08-01 Outpatient [facility] [id number] [place] 00:00:00 00:00:00 354 Method i 2020-08-01 2020-08-01 Outpatient ANA, [facility] [id number] [place] 00:00:00 00:00:00 ENRIKE 786 Method i 2020-07-27 2020-07-27 Outpatient MACKENZIE, [facility] [id number] [place] 00:00:00 00:00:00 YARITZA 086 Method i 2020-07-12 2020-07-12 Outpatient ROBBEN, [facility] [id number] [place] 00:00:00 00:00:00 ROMEO [address] 2020-06-29 2020-06-29 Outpatient MACKENZIE, [facility] [id number] [place] 00:00:00 00:00:00 YARITZA 949 Method i 2020-06-29 2020-06-29 Outpatient MACKENZIE, [facility] [id number] [place] 00:00:00 00:00:00 YARITZA 276 Method i 2020-06-29 2020-06-29 Outpatient MACKENZIE, [facility] [id number] [place] 00:00:00 00:00:00 YARITZA 646 Method i 2020-06-29 2020-06-29 Outpatient MACKENZIE, [facility] [id number] [place] 00:00:00 00:00:00 YARITZA 447 Method i 2020-06-22 2020-06-22 Outpatient MACKENZIE, [facility] [id number] [place] 00:00:00 00:00:00 YARITZA 916 Method i 2020-06-22 2020-06-22 Outpatient MACKENZIE, [facility] [id number] [place] 00:00:00 00:00:00 YARITZA 739 Method i 2020-06-22 2020-06-22 Outpatient MACKENZIE, [facility] [id number] [place] 00:00:00 00:00:00 YARITZA [address] 2020-06-21 2020-06-21 Outpatient [facility] [id number] [place] 00:00:00 00:00:[address] 2020-06-20 2020-06-20 Outpatient ANA, [facility] [id number] [place] 00:00:00 00:00:00 ENRIKE [address] 2020-06-20 2020-06-20 Outpatient ANA, [facility] [id number] [place] 00:00:00 00:00:00 ENRIKE 957 Method i 2020-06-01 2020-06-01 Outpatient OSMAN, [facility] [id number] [place] 00:00:00 00:00:00 SHADE [address] 2020-05-31 2020-05-31 Outpatient TERESO, [facility] [id number] [place] 00:00:00 00:00:00 UMER 353 Method i 2020-03-14 2020-03-14 Outpatient OSMAN, [facility] [id number] [place] 00:00:00 00:00:00 SHADE 447 Method i 2020-02-24 2020-02-24 Urgent Provider, [facility] [id number] Univers 08:52:30 09:12:30 Care Kvng Milian [facility] [id number] ity [facility] [id number] Alexx as Professio [phone] [place] [address] [address] 2020-02-24 2020-02-24 [facility] [id number] [facility] 09:00:00 09:00:00 KVNG rees o f [facility] 2019-12-16 2019-12-16 Outpatient OSMAN, [facility] [id number] [place] 00:00:00 00:00:00 SHADE [address] 2019-11-05 2019-11-05 Outpatient HOBDAY, [facility] [id number] [place] 00:00:00 00:00:00 ROMEO 241 [address] th[address] 2019-10-21 2019-10-21 Outpatient OSMAN, [facility] [id number] [place] 00:00:00 00:00:00 SHADE [address] 2019-10-20 2019-10-20 Outpatient OSMAN, [facility] [id number] [place] 00:00:00 00:00:00 SHADE [address] 2019-10-07 2019-10-11 Inpatient [place]ILLIVRA [place] [id number] [place] 00:00:00 00:00:00 GRABIEL Jeronimo [address] 2019-10-06 2019-10-06 Outpatient VOLLIONEL NIX [facility] [id number] [place] 00:00:00 00:00:[address] 2019-10-06 2019-10-06 Outpatient LIONEL CORTES [facility] [id number] [place] 00:00:00 00:00:[address] 2019-10-06 2019-10-06 Outpatient LIONEL CORTES [facility] [id number] [place] 00:00:00 00:00:[address] 2019-10-04 2019-10-04 Outpatient MACGILLIVRA [facility] [id number] [place] 00:00:00 00:00:00 GRABIEL Jeronimo [address] 2019-10-04 2019-10-04 Outpatient MACGILLIVRA [facility] [id number] [place] 00:00:00 00:00:00 GRABIEL Jeronimo [address] 2019-10-04 2019-10-04 Outpatient MACGILLIVRA [facility] [id number] [place] 00:00:00 00:00:00 GRABIEL Jeronimo [address] 2019-10-04 2019-10-04 Outpatient MACGILLIVRA [facility] [id number] [place] 00:00:00 00:00:00 GRABIEL Jeronimo [address] 2019-09-20 2019-09-20 Outpatient AIMEETOMMY, [facility] [id number] [place] 00:00:00 00:00:00 AYA [address] 2019-09-06 2019-09-06 Outpatient FRANK MILES [facility] [id number] [place] 00:00:00 00:00:[address] 2019-09-06 2019-09-06 Outpatient MACGILLIVRA [facility] [id number] [place] 00:00:00 00:00:00 GRABIEL Jeronimo [address] 2019-09-06 2019-09-06 Outpatient FRANK MILES [facility] [id number] [place] 00:00:00 00:00:[address] 2019-09-06 2019-09-06 Outpatient FRANK MILES [facility] [id number] [place] 00:00:00 00:00:[address] 2019-08-27 2019-08-27 Outpatient FRANK MILES [facility] [id number] [place] 00:00:00 00:00:[address] 2019-08-25 2019-08-25 Outpatient FRANK MILES [facility] [id number] [place] 00:00:00 00:00:[address] 2019-08-25 2019-08-25 Outpatient TERESO, [facility] [id number] [place] 00:00:00 00:00:00 UMER [address] 2019-08-18 2019-08-18 Outpatient FRANK MILES [facility] [id number] [place] 00:00:00 00:00:[address] 2019-08-17 2019-08-17 Outpatient HOBPK, [facility] [id number] [place] 00:00:00 00:00:00 ROMEO [address] 2019-08-13 2019-08-13 Outpatient FRANK MILES [facility] [id number] [place] 00:00:00 00:00:[address] 2019-08-12 2019-08-12 Outpatient TERESO, [facility] [id number] [place] 00:00:00 00:00:00 UMER [address] 2019-07-21 2019-08-05 Inpatient ROJAS, [facility] [id number] [place] 00:00:00 00:00:00 SHANNAN [address] 2019-07-19 2019-07-19 Outpatient FRANK MILES [facility] [id number] [place] 00:00:00 00:00:[address] 2019-07-14 2019-07-14 Outpatient FRANK MILES [facility] [id number] [place] 00:00:00 00:00:[address] 2019-07-08 2019-07-08 Outpatient FRANK MILES [facility] [id number] [place] 00:00:00 00:00:[address] 2019-07-07 2019-07-07 Outpatient GINGERFRANK [facility] [id number] [place] 00:00:00 00:00:[address] 2019-06-21 2019-06-21 Outpatient FRANK MILES [facility] [id number] [place] 00:00:00 00:00:[address] 2019-05-25 2019-05-28 Inpatient GINGER FRANK [place] [id number] [place] 00:00:00 00:00:[address] 2019-05-24 2019-05-24 Outpatient FRANK MILES [facility] [id number] [place] 00:00:00 00:00:[address] 2019-05-24 2019-05-24 Outpatient FRANK MILES [facility] [id number] [place] 00:00:00 00:00:[address] 2019-05-24 2019-05-24 Outpatient FRANK MILES [facility] [id number] [place] 00:00:00 00:00:[address] Results Test Description Test Time Test Comments Results Result Comments Source SARS-CoV-2 (COVID-19) RNA [Presence] in Respiratory sp ecimen by 2020-08-11 18:17:14 CAMERON with probe detection Test Item Value Reference Range Interpretation Comme nts SARS-CoV-2 (COVID-19) RNA [Presence] in Respiratory Not detected No t-Detected specimen by CAMERON with probe detection (test code = 35229-1) 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 (test code = 76665-9) Whether the patient has symptoms related to condition of interest (test code = 72457-7) Patient was hospitalized because of this condition (test code = 97987-0) Whether the patient was admitted to intensive care unit (ICU) for condition of interest (test code = 39709-3) Whether patient resides in a congregate care setting (test code = 35920-3) SARS-CoV-2 (COVID-19) RNA [Presence] in Respiratory specimen by CAMERON with probe [id number] 10:20:36 Test Item Value Reference Range Interpretation Comments SARS-CoV-2 (COVID-19) RNA Not detected Not-Detected [Presence] in Respiratory specimen by CAMERON with probe detection (test code = 22677-9) SARS coronavirus 2 RNA [Presence] in Respiratory specimen by CAMERON with probe [id number] 14:57:44 Test Item Value Reference Range Interpretation Comments SARS coronavirus 2 RNA Not detected Not-Detected [Presence] in Respiratory specimen by CAMERON with probe detection (test code = 50189-7)
[2021-07-12 23:56] LABS: Absolute Lymphocytes (CBC) 1.4 K/uL (0.7-4.9); Lymphocytes % 17.2 % (15.3-44.8); MPV 10.2 fL (7.6-11.3); RBC Red Blood Cell Count 5.32 M/uL (3.86-4.86)
[2021-07-13 00:03] LABS: Urine Specific Gravity/Preg 1.025 (1.005-1.030)
[2021-07-13 00:03] LABS: Protime INR 1.07
[2021-07-13 00:04] LABS: Urine Bacteria >50 /HPF (<20); Urine Mucus 2+ /HPF (NONE SEEN)
[2021-07-13 00:05] LABS: Barbiturates NEGATIVE (NEGATIVE); Benzodiazepines NEGATIVE (NEGATIVE); Cocaine NEGATIVE (NEGATIVE); METHAMPHETAM NEGATIVE (NEGATIVE); Methadone NEGATIVE (NEGATIVE); Opiates NEGATIVE (NEGATIVE); Phencyclidine NEGATIVE (NEGATIVE); THC Cannibis NEGATIVE (NEGATIVE)
[2021-07-13 00:15] LABS: Albumin 4.6 g/dL (3.4-5.0); Bilirubin Direct 0.2 mg/dL (0-0.2); Bilirubin Total 0.6 mg/dL (0.2-1.0); Potassium 3.3 mmol/L (3.5-5.1); Protein, Total 8.4 g/dL (6.4-8.2); Troponin High Sensitivity 5.1 pg/mL (<58.9)
--- NOTE | 2021-07-13 04:03 | ER ---
Nurse's Notes [facility] Name: Genoveva Harrison Age: 25 yrs Sex: Female : 1995 Arrival Date: 07/12/2021 Time: 21:36 Bed 5 Private MD: Diagnosis: Dyspnea;Palpitations;;UTI/ Urinary tract infection, site not specified Presentation: 07/12 22:29 Chief complaint: Patient states: States "I was at work and I felt like my heart was ll3 beating out of my chest, and felt SOB". Coronavirus screen: Vaccine status: Patient reports receiving the 2nd dose of the covid vaccine. At this time, the client does not indicate any symptoms associated with coronavirus-19. Ebola Screen: No symptoms or risks identified at this time. Initial Sepsis Screen: Does the patient meet any 2 criteria? No. Patient's initial sepsis screen is negative. Does the patient have a suspected source of infection? No. Patient's initial sepsis screen is negative. Risk Assessment: Do you want to hurt yourself or someone else? Patient reports no desire to harm self or others. Onset of symptoms was July 12, 2021 at 21:00. 22:29 Method Of Arrival: Ambulatory ll3 22:29 Acuity: FERNANDA 3 ll3 Triage Assessment: 22:32 General: Appears comfortable, Behavior is calm, cooperative. Pain: Denies pain. Neuro: ll3 Level of Consciousness is awake, alert, obeys commands, Oriented to person, place, time, situation. Cardiovascular: Reports shortness of breath, Denies chest pain, Parent/caregiver reports patient has had since States at 9 PM"I felt like my heart was going to beat out of my chest". Respiratory: Reports shortness of breath States had SOB at 9 PM, denies SOB at this time. Onset: The symptoms/episode began/occurred today, the patient reports symptoms have resolved. Derm: Skin is pink, warm \\T\\ dry. 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 - Social history:: Smoking status: Reported history of juuling and/or vaping. Screenin/29 01:52 Abuse screen: Denies threats or abuse. Nutritional screening: No deficits noted. ke1 Tuberculosis screening: No symptoms or risk factors identified. Fall Risk No fall in past 12 months (0 pts). No secondary diagnosis (0 pts). IV access (20 points). Ambulatory Aid- None/Bed Rest/Nurse Assist (0 pts). Gait- Normal/Bed Rest/Wheelchair (0 pts) Mental Status- Oriented to own ability (0 pts). Assessment: 07/12 22:45 Cardiovascular: Heart tones S1 S2 Capillary refill < 3 seconds Rhythm is sinus rhythm. ke1 22:45 Respiratory: Airway is patent Respiratory effort is even, unlabored, Breath sounds are ke1 clear bilaterally. 07/13 01:45 Reassessment: Patient appears in no apparent distress at this time. Patient is alert, ke1 oriented x 3, equal unlabored respirations, skin warm/dry/pink. Patient denies pain at this time. Patient states feeling better. 02:45 Reassessment: Patient appears in no apparent distress at this time. Patient and/or vc1 family updated on plan of care and expected duration. Pain level reassessed. Patient is alert, oriented x 3, equal unlabored respirations, skin warm/dry/pink. 03:45 Reassessment: Patient and/or family updated on plan of care and expected duration. Pain vc1 level reassessed. Patient is alert, oriented x 3, equal unlabored respirations, skin warm/dry/pink. Patient states feeling better. Patient states symptoms have improved. Vital Signs: 07/12 22:29 BP 133 / 77; Pulse 70; Resp 16; Temp 98.2; Pulse Ox 100% on R/A; Weight 81.65 kg (R); ll3 Height 5 ft. 2 in. (157.48 cm) (R); Pain 0/10; 23:00 BP 131 / 75; Pulse 76; Resp 18; Pulse Ox 100% ; vc1 07/13 01:47 BP 116 / 76; Pulse 78; Resp 22; Pulse Ox 100% on R/A; ke1 02:30 BP 137 / 59; Pulse 98; Resp 18; Pulse Ox 100% on R/A; vc1 07/12 22:29 Body Mass Index 32.92 (81.65 kg, 157.48 cm) ll3 ED Course: 07/12 21:36 Patient arrived in ED. kz 22:32 Triage completed. ll3 22:32 Arm band placed on right wrist. ll3 23:01 Jacinta Beltran, RN is Primary Nurse. vc1 23:15 Juan F Alcala MD is Attending Physician. 7 23:43 XRAY Chest (1 view) In Process Unspecified. EDMS 23:46 Inserted saline lock: 20 gauge in right antecubital area, using aseptic technique. by ke1 Demetris REAL. 07/13 01:52 Bed in low position. Call light in reach. ke1 03:07 CT Chest For PE Angio In Process Unspecified. EDMS 04:00 Ravi Caldwell MD is Referral Physician. 7 04:06 No provider procedures requiring assistance completed. ke1 04:09 IV discontinued. ke1 Administered Medications: No medications were administered Outcome: 04:02 Discharge ordered by . 7 04:09 Discharged to home ambulatory. ke1 04:09 Condition: good 04:09 Discharge instructions given to patient. 04:09 Patient left the ED. ke1 Signatures: Dispatcher [employer] EDAK uJan F Alcala MD MD 7 Sue Upton RN RN 3 Jacinta Beltran, RN RN vc1 Santosh Frey RN RN ke1 Sue Vazquez Corrections: (The following items were deleted from the chart) 01:52 01:47 BP 116 / 76; Pulse 78bpm; Resp 18bpm; Pulse Ox 100% RA; ke1 ke1
--- NOTE | 2021-07-13 04:03 | EDPHYS ---
Physician Documentation [facility] Name: Genoveva Harrison Age: 25 yrs Sex: Female : 1995 Arrival Date: 07/12/2021 Time: 21:36 Bed 5 Private MD: ED Physician Juan F Alcala HPI: 07/12 23:45 This 25 yrs old Female presents to ER via Ambulatory with complaints of Shortness Of mh7 Breath, Palpitations. 23:45 The patient has shortness of breath at rest. Onset: The symptoms/episode began/occurred mh7 today. Duration: The symptoms are intermittent, with no pattern. The patient's shortness of breath is aggravated by nothing, is alleviated by nothing. Associated signs and symptoms: Pertinent positives: palpitations, Pertinent negatives: chest pain, non-productive cough, productive cough, diaphoresis, dizziness, fever, hemoptysis, loss of consciousness, nausea, numbness in extremities, visual changes, vomiting. Severity of symptoms: At their worst the symptoms were moderate today, in the emergency department the symptoms have improved moderately. The patient has experienced similar episodes in the past, several times. EDGE BASTER: 22:32 LMP 06/02/2021 ll3 Historical: - Allergies: 22:32 Morphine; ll3 - PMHx: 22:32 scoliosis; truncus arteriosis; ll3 - Immunization history:: Client reports receiving the 2nd dose of the Covid vaccine. - Social history:: Smoking status: Reported history of juuling and/or vaping. ROS: 23:45 Constitutional: Negative for fever, chills, and weight loss, Eyes: Negative for injury, mh7 pain, redness, and discharge, ENT: Negative for injury, pain, and discharge, Neck: Negative for injury, pain, and swelling, Abdomen/GI: Negative for abdominal pain, nausea, vomiting, diarrhea, and constipation, Back: Negative for injury and pain, : Negative for injury, bleeding, discharge, and swelling, MS/Extremity: Negative for injury and deformity, Skin: Negative for injury, rash, and discoloration, Neuro: Negative for headache, weakness, numbness, tingling, and seizure, Psych: Negative for depression, anxiety, suicide ideation, homicidal ideation, and hallucinations, Allergy/Immunology: Negative for hives, rash, and allergies, Endocrine: Negative for neck swelling, polydipsia, polyuria, polyphagia, and marked weight changes, Hematologic/Lymphatic: Negative for swollen nodes, abnormal bleeding, and unusual bruising. Exam: 23:45 Constitutional: This is a well developed, well nourished patient who is awake, alert, mh7 and in no acute distress. Head/Face: Normocephalic, atraumatic. Eyes: Pupils equal round and reactive to light, extra-ocular motions intact. Lids and lashes normal. Conjunctiva and sclera are non-icteric and not injected. Cornea within normal limits. Periorbital areas with no swelling, redness, or edema. Neck: Trachea midline, no thyromegaly or masses palpated, and no cervical lymphadenopathy. Supple, full range of motion without nuchal rigidity, or vertebral point tenderness. No Meningismus. Chest/axilla: Normal chest wall appearance and motion. Nontender with no deformity. No lesions are appreciated. Cardiovascular: Regular rate and rhythm with a normal S1 and S2. No gallops, murmurs, or rubs. Normal PMI, no JVD. No pulse deficits. Respiratory: Lungs have equal breath sounds bilaterally, clear to auscultation and percussion. No rales, rhonchi or wheezes noted. No increased work of breathing, no retractions or nasal flaring. Abdomen/GI: Soft, non-tender, with normal bowel sounds. No distension or tympany. No guarding or rebound. No evidence of tenderness throughout. Back: No spinal tenderness. No costovertebral tenderness. Full range of motion. Skin: Warm, dry with normal turgor. Normal color with no rashes, no lesions, and no evidence of cellulitis. MS/ Extremity: Pulses equal, no cyanosis. Neurovascular intact. Full, normal range of motion. Neuro: Awake and alert, GCS 15, oriented to person, place, time, and situation. Cranial nerves II-XII grossly intact. Motor strength 5/5 in all extremities. Sensory grossly intact. Cerebellar exam normal. Normal gait. Psych: Awake, alert, with orientation to person, place and time. Behavior, mood, and affect are within normal limits. Vital Signs: 22:29 BP 133 / 77; Pulse 70; Resp 16; Temp 98.2; Pulse Ox 100% on R/A; Weight 81.65 kg (R); ll3 Height 5 ft. 2 in. (157.48 cm) (R); Pain 0/10; 23:00 BP 131 / 75; Pulse 76; Resp 18; Pulse Ox 100% ; vc1 07/13 01:47 BP 116 / 76; Pulse 78; Resp 22; Pulse Ox 100% on R/A; ke1 02:30 BP 137 / 59; Pulse 98; Resp 18; Pulse Ox 100% on R/A; vc1 07/12 22:29 Body Mass Index 32.92 (81.65 kg, 157.48 cm) ll3 MDM: 03:58 Differential diagnosis: Anemia Anxiety Reaction asthma, Bronchitis CHF exacerbation, mh7 Chronic Obstructive Pulmonary Disease Myocardial Infarction pneumonia, Pneumothorax Psychogenic pulmonary edema, Pulmonary Embolism reactive airway disease. Data reviewed: vital signs, nurses notes, old medical records, lab test result(s), Beta HCG: cardiac enzymes, CBC, electrolytes, urinalysis, urine drug screen, UPT: positive EKG, radiologic studies, CT scan, plain films. Data interpreted: Pulse oximetry: on room air is 100 %. Interpretation: normal. Counseling: I had a detailed discussion with the patient and/or guardian regarding: the historical points, exam findings, and any diagnostic results supporting the discharge/admit diagnosis, the presence of at least one elevated blood pressure reading (>120/80) during this emergency department visit, lab results, radiology results, the need for outpatient follow up, an site medical director, an OB/Gyne specialist, to return to the emergency department if symptoms worsen or persist or if there are any questions or concerns that arise at home. Response to treatment: the patient's symptoms have resolved after treatment, the patient's blood pressure is in an acceptable range, mental status has returned to baseline, the patient no longer shows bradycardia, the patient is not short of breath, the patient is not tachycardic, the patient's pain is gone, the patient's temperature has normalized, the patient is now symptom free, patient is well hydrated. 04:[address] [facility] 07/12 23:17 Order name: Basic Metabolic Panel; Complete Time: 01:04 [facility] 07/12 23:17 Order name: CBC with Diff; Complete Time: 00:12 [facility] 07/12 23:17 Order name: LFT's; Complete Time: 01:04 [facility] 07/12 23:17 Order name: Magnesium; Complete Time: 01:04 [facility] 07/12 23:17 Order name: NT PRO-BNP; Complete Time: 01:04 [facility] 07/12 23:17 Order name: PT-INR; Complete Time: 00:12 [facility] 07/12 23:17 Order name: Troponin HS; Complete Time: 01:04 [facility] 07/12 23:17 Order name: XRAY Chest (1 view) [facility] 07/12 23:17 Order name: UDS; Complete Time: 00:12 [facility] 07/12 23:43 Order name: Urine Microscopic Only; Complete Time: 00:12 5 07/12 23:56 Order name: Urine --Ancillary (enter results); Complete Time: 00:12 9 07/13 00:11 Order name: Urine Culture [facility] 07/13 01:05 Order name: HCG-Quantitative; Complete Time: 02:59 [facility] 07/13 01:53 Order name: CT Chest For PE Angio [facility] 07/12 23:17 Order name: EKG; Complete Time: 23:18 [facility] 07/12 23:17 Order name: Cardiac monitoring; Complete Time: 23:24 [facility] 07/12 23:17 Order name: EKG - Nurse/Tech; Complete Time: 23:24 [facility] 07/12 23:17 Order name: IV Saline Lock; Complete Time: 23:47 [facility] 07/12 23:17 Order name: Labs collected and sent; Complete Time: 23:47 [facility] 07/12 23:17 Order name: O2 Per Protocol; Complete Time: 23:49 [facility] 07/12 23:17 Order name: O2 Sat Monitoring; Complete Time: 23:49 [facility] 07/12 23:17 Order name: Urine Dipstick-Ancillary (obtain specimen); Complete Time: 23:43 [facility] 07/12 23:17 Order name: Urine Test (obtain specimen); Complete Time: 23:43 [facility] Administered Medications: No medications were administered Disposition Summary: 07/13/21 04:02 Discharge Ordered Location: Home [facility] Problem: new [facility] Symptoms: have improved [facility] Condition: Stable [facility] Diagnosis - Dyspnea 7 - Palpitations 7 - [facility] - UTI/ Urinary tract infection, site not specified [facility] Followup: [facility] - With: Private Physician - When: 1 - 2 days - Reason: Worsening of condition, Recheck today's complaints, Continuance of care, Re-evaluation by your physician Followup: [facility] - With: Ravi Caldwell MD - When: 1 - 2 days - Reason: Worsening of condition, Recheck today's complaints Discharge Instructions: - Discharge Summary Sheet [facility] - Shortness of Breath, Adult, [id number] [facility] - First Trimester of , [id number]-Ryim [facility] - Urinary Tract Infection, Adult, [id number] [facility] - Palpitations, Wloi-ts-Arps [facility] Forms: - Medication Reconciliation Form [facility] - Thank You Letter [facility] - Antibiotic Education [facility] - Prescription Opioid Use [facility] Prescriptions: - Macrobid 100 mg Oral Capsule - take 1 capsule by ORAL route every 12 hours for 7 days; 14 capsule; Refills: 0, [facility] Product Selection Permitted Signatures: Dispatcher [employer] Juan F Patel MD MD [facility] Sue Upton RN RN ll3
[2021-07-13 04:59] VITALS: TEMP 98.2; O2SAT 100
[2021-07-13 05:06] VITALS: BP 137/59
--- NOTE | 2021-07-13 07:43 | EKG ---
Test Date: 2021-07-12 Test Time: 23:21:06 Customer Resolution Specialist: JOSE MEASUREMENT RESULTS: Intervals: Rate: 72 NM: 154 QRSD: 158 QT: 458 QTc: 501 [place]: P: 54 NM: 154 QRS: 68 T: 72 INTERPRETIVE STATEMENTS: Normal sinus rhythm Right bundle branch block Abnormal ECG Compared to ECG 05/25/2019 14:27:03 No significant changes Electronically Signed On 07-13-21 07:42:09 CDT by Paulino Martinez
--- NOTE | 2021-07-13 13:00 | RAD REPORT ---
EXAM DESCRIPTION: Chest For Pe Angio 07/13/2021 3:35 AM CDT CLINICAL HISTORY: 25 years, Female, Shortness of breath COMPARISON: 05/20 as 20. TECHNIQUE: Multiple transaxial tomograms of the chest were obtained from the lung apices through the lung bases utilizing 2 mm slice thickness at 2 mm interval reconstruction after the administration o f large bolus of IV contrast for complete opacification of the pulmonary arteries. Subsequent 3-D maximum intensity projection images were generated in the coronal and sagittal plane f or review. This exam was performed according to our departmental dose-optimization protocol, which includes auto mated exposure control, adjustment of the mA and/or kV according to patient size and/or use of iterat noe reconstruction technique. FINDINGS: The presence of posterior transpedicular screw fixation device throughout lumbar spine naqvi its evaluation. The lungs parenchyma demonstrate demonstrate to be clear. No masses, nodules and/or consolidations ar e identified. The trachea mainstem bronchus demonstrate to be normal. There is no significant pericardial or pleura l effusions. Sternotomy wires correspond to previous cardiothoracic surgery. Findings suggest most likely previous transposition of the vessels with the findings suggest most likely surgical correction. There is a r ight pulmonary artery stent. The thoracic aorta demonstrate to be unremarkable. The heart demonstrate cardiomegaly with periventricular dilatation. There is prominence of drainage of a hemiazygos. There is no significant mediastinal and/or hilar lymphadenopathy. The axillary regions demonstrate to be clear. Pulmonary arteries demonstrate to be normal, no intraluminal defect are seen that would suggest pulmo nary embolus. There is posterior transpedicular screw fixation device for correction of scoliosis. The visualized portions of the upper abdomen demonstrate fatty infiltration of the liver. IMPRESSION: No evidence of pulmonary embolism. Cardiomegaly with periventricular dilatation. Status post cardiothoracic surgery with right pulmonary artery stent. Fatty infiltration of the liver. Posterior transpedicular screw fixation device for correction of scoliosis. Electronically signed by: Jack Rivera MD 07/13/2021 3:40 AM CDT Due to temporary technical issues with the PACS/Fluency reporting system, reports are being signed by the in house radiologist without review as a courtesy to ensure prompt reporting. The interpreting r adiologist is fully responsible for the content of the report.
--- NOTE | 2021-07-13 13:40 | RAD REPORT ---
EXAM DESCRIPTION: Chest Single View CLINICAL HISTORY: 5 years Female, Chest pain COMPARISON: None FINDINGS/IMPRESSION: No focal lung consolidation. No pleural effusion. No pneumothorax. Cardiomediastinal silhouette is enlarged. No acute osseous abnormality. Extensive thoracolumbar postsurgical changes. Electronically signed by: Jeffry Meza DO 07/13/2021 12:02 AM CDT Due to temporary technical issues with the PACS/Fluency reporting system, reports are being signed by the in house radiologist without review as a courtesy to ensure prompt reporting. The interpreting r adiologist is fully responsible for the content of the report.
== END 2021-07-13 04:09 | disposition home or self-care (01) ==
LOC: ER 21:34
DX: R06.00 Dyspnea, unspecified (principal); R00.2 Palpitations; N39.0 Urinary tract infection, site not specified; Z33.1 Pregnant state, incidental; Z88.5 Allergy status to narcotic agent
CPT/HCPCS: 93005; 87088; 85025; 87086; 80048; 36415; 83735; 81025; 85610; 80076; 84702; 81015; 84484; 83880; 80307; 71275; 71045; 99284; Q9967